=== PATIENT | female | born 1980 ===

== ENCOUNTER 2025-01-11 09:16 | Outpatient (AMB) | payer OTHER, SELFPAY ==
--- NOTE | 2025-01-11 09:16 | MHC.PC.OV ---
Vital Signs 01/11/25 09:24 Height 5 ft 4 in Weight 146 lb BMI 25.1 BP 132/74 Respiration 14 Pulse 76 Pulse Source Pulse Oximeter Temp 97.9 F Temp Source Temporal Artery Scan Pulse Oximetry (%) 99 Oxygen Delivery Method Room Air Intake Visit Reasons: establish care Casket Inspector Required: No Accompanied by: Self / Same As Patient Is last menstrual period known: Yes Post menopausal: No Patient : No Allergies No Known Allergies Allergy (Verified 01/11/25 09:39) Medication List - Last Reconciled 01/11/25 by Radha Richey PA-C No Known Home Meds Tobacco use date assessed: 01/11/25 Dental Screening Dental Screen Date: 01/11/25 Did you have a dental visit in the last 12 months?: Yes Did you have a dental problem in the last 6 months where you did not have access to dental care?: No Was dental information given to patient?: Patient has dentist HPI establish care HPI Details The patient is a 44-year-old female presenting with the objective of establishing primary care and receiving a routine wellness examination. She notes past suggestions of PCOS due to a set of symptoms but lacks formal diagnostic confirmation via laboratory tests. She reports past perforation of her eardrum last year linked to a sinus infection, which resolved in three months, attributing the incident to sneezing during the said infection. Her gynecological health is maintained through [facility], with regular mammograms and an HPV screening performed recently, suggesting adherence to recommended preventive screenings. The patient denies any concerning gastrointestinal symptoms or familial colorectal cancer history, but her father had a history of Graves' Disease. An earlier placement of an IUD had exacerbated her menstrual symptoms, resulting in its removal, which alleviated belly pain and altered her menstrual pattern. Social History - Housing: Resides in [place] - Family status: - Family planning: underwent vasectomy - Father has a history of Graves? disease [facility] Medical History (Updated 01/11/25 @ 09:57 by Radha Richey PA-C) History of mammogram (~01/2025) Cervical cancer screening (~11/2024) Establishing care with new doctor, encounter for Family History (Updated 01/11/25 @ 09:27 by PREETHI Lambert) Father Graves disease Mother Heart attack Smoker Social History (Updated 01/11/25 @ 09:19 by BETHANY Lambert Housing: House Alcohol intake: current Alcohol intake frequency: holidays/special occasions only Patient Tobacco Use Status: Never used Tobacco service: No Current occupational status: employed Cognitive needs: No Hearing needs: No Vision needs: No Questionnaire PHQ-9 Over the last 2 weeks, how often have you been bothered by any of the following problems? 1. Little interest or pleasure in doing things: not at all 2. Feeling down, depressed, or hopeless: not at all 3. Trouble falling or staying asleep, or sleeping too much: not at all 4. Feeling tired or having little energy: not at all 5. Poor appetite or overeating: not at all 6. Feeling bad about yourself - or that you are a failure or have let yourself or your family down: not at all 7. Trouble concentrating on things, such as reading the newspaper or watching television: not at all 8. Moving or speaking so slowly that other people could have noticed. Or the opposite - being so fidgety or restless that you have been moving around a lot more than usual: not at all 9. Thoughts that you would be better off or of hurting yourself in some way: not at all Total score: 0 Depression Screening Interpretation: Negative Depression Screening Done: Yes 81484 - PHQ-9 Billing: Yes Source: Developed by Drs. Edilberto Mitchell, Laila Bernardo, Petros Parker and colleagues, with an educational margaux from [employer]. Thrive Questionnaire Date Thrive assessed: 01/11/25 I am a: Patient What is your living situation today?: I have a steady place to live Within the past 12 months, did the food you bought not last and you didn't have the money to get more?: Never true Within the past 12 months, did you worry whether your food would run out before you got money to buy more?: Never true Do you have trouble paying for medicines?: No Do you have trouble getting transportation to medical appointments?: No Do you have trouble paying your heating and electricity bill?: No Do you have trouble taking care of your child, family member or friend?: No Do you have trouble with day-to-day activities such as bathing, preparing meals, shopping, managing finances, etc.?: No Are you currently unemployed and looking for a job?: No Are you interested in more education?: No Please select the resources that you would like help with: None THRIVE Score: 0 AUDIT C Alcohol Use Questionnaire (AUDIT-C) 1. How often do you have a drink containing alcohol?: Monthly or less 2. How many drinks containing alcohol do you have on a typical day when you are drinking?: 1 or 2 3. How often do you have six or more drinks on one occasion?: Never Total Score: 1 Score Reviewed/Action Taken: No JUS-7 AMB Questionnaire JUS-7 Date JUS - 7 assessed: 01/11/25 Feeling nervous, anxious, or on edge: 0 = Not at all Not being able to stop or control worryin = Not at all Worrying too much about different things: 0 = Not at all Trouble relaxin = Not at all Being so restless that it is hard to sit still: 0 = Not at all Becoming easily annoyed or irritable: 0 = Not at all Feeling afraid as if something awful might happen: 0 = Not at all Total JUS-7 score (0-4 normal; 5-9 mild; 10-14 moderate; 15-21 severe): 0 Source: Developed by Drs. Edilberto Mitchell, Laila Bernardo, Petros Parker and colleagues, with an educational margaux from [employer]. JUS-7 Assessment Billing JUS-7 Assessment Tool: JUS-7 Assessment 29628 Review of Systems Const Details: - General: Denies unintentional weight loss or weight gain - Gastrointestinal: Denies black or bloody stools - ENT: Reports prior perforated eardrum due to sinus infection; denies current ear issues - Endocrinologic: Father with Graves? Disease; suspected PCOS symptoms - Gynecological: Reports resolved belly pain after IUD removal; regular menstrual cycle currently Physical exam (Primary Care) Vital Signs: Last Vital Signs Temp 97.9 F 01/11/25 09:24 Pulse 76 01/11/25 09:24 Resp 14 01/11/25 09:24 BP 132/74 01/11/25 09:24 Pulse Ox 99 01/11/25 09:24 Oxygen Delivery Method Room Air 01/11/25 09:24 Care Plan Goal for BP management: <130/90 at Goal BMI result Body Mass Index 25.1 BMI Assessment/Plan discussion: High BMI High, discussed plan: lifestyle, weight reduction, dietary, physical activity and alcohol moderation Tobacco/Smoking Status: Tobacco use Status Tobacco use date assessed 01/11/25 01/11/25 09:21 Patient Tobacco Use Status Never used Tobacco 01/11/25 09:21 PHQ-9: PHQ-9 Score PHQ-9: Total score 0 01/11/25 09:44 Depression Screening Interpretation: Negative Thrive Assessment: Date of Thrive Assessment Date Thrive assessed 01/11/25 01/11/25 09:21 Const Other: Appearance: Alert. Oriented X3. No acute distress. Head: Normal external exam. Normocephalic. Atraumatic. Eyes: Pupils are equal, round, and reactive to light. Extraocular movements intact. Conjunctiva and sclera normal. Eyelids normal. Ears: External auditory canal normal. Tympanic membranes normal. Some fluid noted, more on one side. Throat: Pharynx normal. Uvula midline. Moist mucous membranes. Neck: Normal inspection. Neck supple. Full range of motion. No adenopathy. Thyroid Normal. No meningeal signs. No neck mass noted. Cardiovascular: Normal heart rate and rhythm. Heart sound normal. No murmurs noted. Pulses normal throughout. Respiratory: No respiratory distress. Painless inspiration. Breath sounds normal. No wheezes/rales/rhonchi noted. Chest nontender. No accessory muscle usage noted or decreased air movement noted. Abdomen: Soft and nontender. Bowel sounds normal in all 4 quadrants. No distention noted. No organomegaly noted. No visible injury noted. Back: No costovertebral angle tenderness. Full range of motion noted. Skin: Skin warm and dry. Normal skin color. Normal skin turgor. No rashes/lesions/lacerations noted. Extremities: No lower extremity edema. Extremities exhibit normal range of motion. Extremities nontender. Neuro: Oriented X 3. No motor deficit. No sensory deficit. Reflexes normal. Coding Level of Care Code New Pt Level 4 (82495) Complex EM visit Add On G2211 Diagnoses Establishing care with new doctor, encounter for Z76.89 Additional Codes JUS-7 Assessment Billing - JUS-7 Assessment Tool: JUS-7 Assessment 11593 ([id number]) PHQ-9 - 10279 - PHQ-9 Billing: Yes ([id number]) Assessment & Plan Assessment & Plan (1) Establishing care with new doctor, encounter for: Code(s): Z76.89 - Persons encountering health services in other specified circumstances Category: Medical Plan: Addressing routine health maintenance, ongoing preventive measures, and suggested complete blood work, discussing forthcoming mammogram while noting completed HPV screening. Agreed to an annual follow-up unless intervening acute issues or significant health changes arise. Plan Plan Patient was informed and verbally consented to the use of an ambient scribe for clinic note documentation during this visit. 1. Polycystic Ovary Syndrome Pcos Initiated hormone testing to explore a possible diagnosis of PCOS. The choice to order these tests arose due to reported symptoms and past discussions with the OB-CONCRETE VIBRATOR OPERATOR, emphasizing baseline hormonal insights as critical. 2. Perforated Eardrum Past perforated eardrum was noted, associated with a prior sinus infection. Initial resolution appeared satisfactory, requiring no further treatment. Continued monitoring for sinus-related symptoms was suggested for precautionary purposes. 3. Routine Health Maintenance And Preventive Care Addressing routine health maintenance, ongoing preventive measures, and suggested complete blood work, discussing forthcoming mammogram while noting completed HPV screening. Agreed to an annual follow-up unless intervening acute issues or significant health changes arise. During the visit, I addressed the likely suspicion of Polycystic Ovary Syndrome (PCOS) as previously suggested by her OB-CONCRETE VIBRATOR OPERATOR, and I discussed the benefits of laboratory confirmation through hormone analysis to better understand her condition. We acknowledged that an upcoming mammogram aligns with preventive health objectives, coupled with her recent HPV screening, ensuring she adheres to recommended guidelines. The historical occurrence of her perforated eardrum was reviewed, and although resolved, precautionary advice for managing potential sinus symptoms was provided. Family planning discussions reflected a transition from IUD to alternative methods with her 's participation. Follow-up after bloodwork completion was agreed upon to adjust her healthcare plan if necessary, with a standard annual wellness review. Orders: Orders C Reactive Protein Today Z00.00 - Encounter for general adult medical examination without abnormal findings Complete Blood Count Auto Diff Today Z00.00 - Encounter for general adult medical examination without abnormal findings Comprehensive [place]. Panel Fast Today Z00.00 - Encounter for general adult medical examination without abnormal findings Lipid Panel Today Z00.00 - Encounter for general adult medical examination without abnormal findings Vitamin D 25-OH Total Today Z00.00 - Encounter for general adult medical examination without abnormal findings Magnesium Today Z00.00 - Encounter for general adult medical examination without abnormal findings TSH reflex Free T4 Today Z00.00 - Encounter for general adult medical examination without abnormal findings Testosterone, Total Today Z00.00 - Encounter for general adult medical examination without abnormal findings Estrogen Today Z00.00 - Encounter for general adult medical examination without abnormal findings Lutenizing Hormone Today Z00.00 - Encounter for general adult medical examination without abnormal findings Anti-Mullerian Hormone-Female Today Z00.00 - Encounter for general adult medical examination without abnormal findings Hemoglobin A1c Today Z00.00 - Encounter for general adult medical examination without abnormal findings Liver Panel Today Z00.00 - Encounter for general adult medical examination without abnormal findings Vitamin B12 and Folate Today Z00.00 - Encounter for general adult medical examination without abnormal findings Progesterone Today Z00.00 - Encounter for general adult medical examination without abnormal findings Prolactin Today Z00.00 - Encounter for general adult medical examination without abnormal findings Erythrocyte Sedimentation Rate Today Z00.00 - Encounter for general adult medical examination without abnormal findings Patient Instructions: - Fast before having blood work done. - Attend your scheduled mammogram. - Return immediately if experiencing significant sinus issues, abdominal pain, or other unexpected health changes. - Schedule annual wellness check or return earlier if acute symptoms arise. - For any urgent concerns, seek appropriate medical attention.
[2025-01-11 09:24] VITALS: BP 132/74; PULSE 76; RESP 14; TEMP 36.6; O2SAT 99; BMI 25.1
== END 2025-01-11 09:48 | disposition home or self-care (01) ==
LOC: HO.HMCSH 09:16
PROVIDERS: PCP Physician Assistant Medical; Visit Provider Physician Assistant Medical
DX: Z76.89 Persons encountering health services in other specified circumstances (principal)

== ENCOUNTER → 2025-01-11 09:16 | Outpatient (BNVA) | payer OTHER, SELFPAY | PROVIDERS: PCP Physician Assistant Medical; Visit Provider Physician Assistant Medical | DX: Z76.89 Persons encountering health services in other specified circumstances (principal) | CPT/HCPCS: 96127; 99202 ==

== ENCOUNTER 2025-07-09 10:02 | Outpatient (REF) | payer OTHER, SELFPAY ==
[2025-07-09 13:14] LABS: MANUAL DIFF FLAG NO
[2025-07-09 13:23] LABS: Hematocrit 42.1 % (37.0-47.0); Hemoglobin 14.0 g/dl (12.0-16.0); Imm Gran Abs Auto 0.01 X10*3/uL (0.00-0.03); Imm Gran Pct Auto 0.2 % (0.0-0.4); Lymphocytes Absolute Auto 1.5 X10*3/uL (1.2-4.9); Mean Corpuscular HGB Conc 33.3 g/dl (31.0-35.0); Mean Corpuscular Hemoglobin 28.2 pg (27.0-33.0); Mean Corpuscular Volume 84.7 fL (80.0-98.0); NRBC Abs Auto 0.000 X10*3/uL (0.0-0.012); NRBC Pct Auto 0.0 /100WBC (0.0-0.2); Platelet Count 245 X10*3/uL (160-400); Red Blood Count 4.97 X10*6/uL (4.20-5.50); White Blood Count 4.9 X10*3/uL (4.8-10.8)
[2025-07-09 13:55] LABS: Alanine Aminotransferase 24 U/L (0-31); Albumin Level 4.6 g/dL (3.5-5.0); Alkaline Phosphatase 81 U/L (39-117); Anion Gap 10 (12-20); Aspartate Amino Transferase 18 U/L (5-31); Blood Urea Nitrogen 11 mg/dL (9-16); Calcium 9.3 mg/dL (8.4-10.2); Carbon Dioxide 25 mmol/L (22-29); Chloride 107 mmol/L (96-108); Cholesterol 191 mg/dL (<200); Estimated Glomerular Filt Rate > 60; HDL Cholesterol 46 mg/dL (>40); Magnesium 2.2 mg/dL (1.6-2.6); Potassium 4.1 mmol/L (3.3-5.1); Sodium 138 mmol/L (135-145); Total Protein 7.3 g/dL (6.5-8.0); Triglycerides 122 mg/dL (<150)
[2025-07-09 14:15] LABS: Folate 8.1 ng/mL (> or = 4.0); Vitamin B12 1493 pg/mL (200-900)
[2025-07-13 13:53] LABS: Anti-Mullerian Hormone-Female 3.04 ng/mL (0.01-2.99)
== END 2025-07-09 10:03 | disposition home or self-care (01) ==
LOC: HO.HMGCLDS 10:02
PROVIDERS: PCP Physician Assistant Medical; Visit Provider Physician Assistant Medical
DX: Z00.00 Encounter for general adult medical examination without abnormal findings (principal); Z13.6 Encounter for screening for cardiovascular disorders; Z13.29 Encounter for screening for other suspected endocrine disorder; Z13.1 Encounter for screening for diabetes mellitus
CPT/HCPCS: 36415; 80053; 80061; 80076; 82166; 82248; 82306; 82607; 82672; 82746; 83002; 83036; 83735; 84144; 84146; 84403; 84443; 85025; 85652; 86140